=== PATIENT | female | born 1975 | race Hispanic/Latino ===

== ENCOUNTER 2020-07-18 14:04 | Outpatient (CLI) | payer OTHER ==
--- NOTE | 2020-07-18 14:27 | RAD ---
XR Knee Lt 2 View HISTORY: Left knee pain FINDINGS: No fracture or dislocation is identified. Degenerative changes are present manifested by osteophyte f ormation and joint space narrowing. No joint effusion is seen. Impression left knee osteoarthritis
== END 2020-07-18 14:05 | disposition home or self-care (01) ==
LOC: BICRAD 14:04
PROVIDERS: ATTEND Internal Medicine
DX: Z02.71 Encounter for disability determination (principal); M17.12 Unilateral primary osteoarthritis, left knee